=== PATIENT | female | born 1990 | race Caucasian/White ===

== ENCOUNTER 2021-12-27 23:31 | Emergency (ER) | payer MEDICAID ==
[~2021-12-27] VITALS: Ht 175.3 cm; Wt 68.2 kg
[2021-12-28 01:50] LABS: GLUCOSE,POINT OF CARE 109 MG/DL (70-110)
[2021-12-28] MEDS ORDERED: AMOX500C2 PO (02:22)
[2021-12-28] MEDS ORDERED: CIPOTIC AU (02:23)
[2021-12-28 02:53] VITALS: BP 141/94
== END 2021-12-28 03:06 | disposition home or self-care (01) ==
LOC: EMS 23:34
DX: H66.93 Otitis media, unspecified, bilateral (principal); H60.93 Unspecified otitis externa, bilateral; F12.90 Cannabis use, unspecified, uncomplicated; F17.210 Nicotine dependence, cigarettes, uncomplicated
CPT/HCPCS: 82962; 99283